=== PATIENT | female | born 1985 | race Caucasian/White ===

== ENCOUNTER → 2023-10-17 11:04 | Outpatient (REF) | payer OTHER, SELFPAY | LOC: PNTC 11:04 | PROVIDERS: ATTENDING PHYSICIAN Obstetrics & Gynecology | DX: O09.529 Supervision of elderly multigravida, unspecified trimester (principal); O99.210 Obesity complicating pregnancy, unspecified trimester; O34.219 Maternal care for unspecified type scar from previous cesarean delivery | CPT/HCPCS: 59025; 76801; 76813 ==

== ENCOUNTER → 2023-11-14 14:24 | Outpatient (REF) | payer OTHER, SELFPAY | LOC: PNTC 14:24 | PROVIDERS: ATTENDING PHYSICIAN Obstetrics & Gynecology | DX: O99.210 Obesity complicating pregnancy, unspecified trimester (principal); O09.529 Supervision of elderly multigravida, unspecified trimester; O43.219 Placenta accreta, unspecified trimester | CPT/HCPCS: 76805; 93976 ==

== ENCOUNTER → 2023-12-12 13:21 | Outpatient (REF) | payer OTHER, SELFPAY | LOC: PNTC 13:21 | PROVIDERS: ATTENDING PHYSICIAN Obstetrics & Gynecology | DX: O99.210 Obesity complicating pregnancy, unspecified trimester (principal); O09.519 Supervision of elderly primigravida, unspecified trimester; O43.219 Placenta accreta, unspecified trimester | CPT/HCPCS: 76811; 93976 ==

== ENCOUNTER → 2024-01-23 13:18 | Outpatient (REF) | payer OTHER, SELFPAY | LOC: PNTC 13:18 | PROVIDERS: ATTENDING PHYSICIAN Obstetrics & Gynecology | DX: O99.210 Obesity complicating pregnancy, unspecified trimester (principal); O09.519 Supervision of elderly primigravida, unspecified trimester; O34.219 Maternal care for unspecified type scar from previous cesarean delivery | CPT/HCPCS: 76816 ==

== ENCOUNTER → 2024-03-05 13:31 | Outpatient (REF) | payer OTHER, SELFPAY | LOC: PNTC 13:31 | PROVIDERS: ATTENDING PHYSICIAN Obstetrics & Gynecology | DX: O99.210 Obesity complicating pregnancy, unspecified trimester (principal); O09.529 Supervision of elderly multigravida, unspecified trimester; O34.219 Maternal care for unspecified type scar from previous cesarean delivery | CPT/HCPCS: 76816 ==

== ENCOUNTER → 2024-03-19 13:33 | Outpatient (REF) | payer OTHER, SELFPAY | LOC: PNTC 13:33 | PROVIDERS: ATTENDING PHYSICIAN Obstetrics & Gynecology | DX: O99.210 Obesity complicating pregnancy, unspecified trimester (principal); O09.529 Supervision of elderly multigravida, unspecified trimester | CPT/HCPCS: 59025; 76815 ==

== ENCOUNTER → 2024-03-26 13:31 | Outpatient (REF) | payer OTHER, SELFPAY | LOC: PNTC 13:31 | PROVIDERS: ATTENDING PHYSICIAN Obstetrics & Gynecology | DX: O09.529 Supervision of elderly multigravida, unspecified trimester (principal); O99.210 Obesity complicating pregnancy, unspecified trimester | CPT/HCPCS: 59025; 76818 ==

== ENCOUNTER → 2024-04-02 10:55 | Outpatient (REF) | payer OTHER, SELFPAY | LOC: PNTC 10:55 | PROVIDERS: ATTENDING PHYSICIAN Obstetrics & Gynecology | DX: O99.210 Obesity complicating pregnancy, unspecified trimester (principal); O09.519 Supervision of elderly primigravida, unspecified trimester | CPT/HCPCS: 59025; 76816 ==

== ENCOUNTER 2024-04-09 22:25 | Inpatient (IN) | payer OTHER, SELFPAY ==
[2024-04-09 22:54] LABS: % Basophils 0.3 % (0-2); % Eosinophils 1.7 % (0-6); % Immature Granulocytes 0.4 % (0-0.5); % Lymphocytes 19.9 % (20.5-51.1); % Monocytes 9.1 % (1.7-9.3); % Neutrophils 68.6 % (42.2-75.2); Absolute Eosinophils 0.2 10^3/uL (0-0.7); Absolute Lymphocytes 1.8 10^3/uL (1.2-3.4); Absolute Monocytes 0.8 10^3/uL (0.1-0.6); Absolute Neutrophils 6.3 10^3/uL (1.4-6.5); Hematocrit 32.5 % (37.0-47.0); Hemoglobin 11.3 g/dL (12.0-16.0); Mean Corp Hgb Conc. 34.8 g/dL (33.0-37.0); Mean Corpuscular Hgb 32.3 pg (27.0-31.0); Mean Corpuscular Volume 92.9 fL (81.0-99.0); Mean Platelet Volume 12.1 fL (7.4-10.4); Nucleated Red Blood Cells % 0 %; Platelet Count 216 10^3/uL (130-400); Red Cell Dist. Width 12.8 % (11.5-14.5); White Blood Cell Count 9.2 10^3/uL (4.8-10.8)
[2024-04-09 22:55] VITALS: BP 120/72; BMI 49.5
[2024-04-09 23:15] LABS: ALT (SGPT) 137 U/L (0-35); AST (SGOT) 75 U/L (14-36); Albumin 3.3 g/dl (3.5-5.0); Alkaline Phosphatase 167 U/L (38-126); Blood Urea Nitrogen 14 mg/dl (7-17); Calcium 8.9 mg/dl (8.4-10.2); Carbon Dioxide 20 mmol/L (22-30); Chloride 105 mmol/L (98-107); Estimated Creatinine Clearance > 125 ml/min; Glucose 100 mg/dl (70-99); Potassium 3.7 mmol/L (3.5-5.1); Sodium 135 mmol/L (135-145); Total Bilirubin 0.4 mg/dl (0.2-1.3); Total Protein 6.2 g/dl (6.3-8.2); eGFR > 60.00
[2024-04-10] MEDS: LR 1000 IV (01:34)
[2024-04-10] MEDS: CLEOCIN 50 IV (05:11)
[2024-04-10] MEDS: BICITRA 30 ML PO (05:23)
[2024-04-10] MEDS: TYLENOL 1000 MG PO (05:23)
[2024-04-10] MEDS: GENTAMICIN 60 MG IV (05:26)
[2024-04-10] MEDS: TORADOL 15 MG IV ×3 (08:39→21:19)
[2024-04-10] MEDS: PRENATAL PLUS PO (11:12)
[2024-04-10] MEDS: FLUSH (NSS) 3 FLUSH IV (21:20)
[2024-04-11] MEDS: TORADOL 15 MG IV (03:03)
[2024-04-11] MEDS: FLUSH (NSS) 3 FLUSH IV (03:04)
[2024-04-11 03:33] LABS: Hematocrit 27.4 % (37.0-47.0); Hemoglobin 9.4 g/dL (12.0-16.0); Mean Corp Hgb Conc. 34.3 g/dL (33.0-37.0); Mean Corpuscular Hgb 33.5 pg (27.0-31.0); Mean Corpuscular Volume 97.5 fL (81.0-99.0); Mean Platelet Volume 11.9 fL (7.4-10.4); Platelet Count 167 10^3/uL (130-400); Red Blood Cell Count 2.81 10^6/uL (4.20-5.40); Red Cell Dist. Width 12.8 % (11.5-14.5); White Blood Cell Count 9.5 10^3/uL (4.8-10.8)
[2024-04-11] MEDS: TYLENOL 650 MG PO ×2 (09:38→20:57)
[2024-04-11] MEDS: SENOKOT-S 1 TABLET PO (09:38)
[2024-04-11] MEDS: MOTRIN 600 MG PO ×3 (09:38→20:57)
[2024-04-11] MEDS: PRENATAL PLUS 1 TABLET PO (09:38)
[2024-04-12 00:31] LABS: Bile Acids (Cholylglycine) 22 umol/L (0-10)
[2024-04-12] MEDS: TYLENOL 650 MG PO ×4 (04:56→21:51)
[2024-04-12] MEDS: MOTRIN 600 MG PO ×3 (04:56→21:51)
[2024-04-12] MEDS: PRENATAL PLUS 1 TABLET PO (09:05)
[2024-04-12] MEDS: FEOSOL 325 MG PO (09:05)
[2024-04-12] MEDS: SENOKOT-S 1 TABLET PO (09:11)
--- NOTE | 2024-04-12 09:47 | W.PN.ANS.POP ---
Anesthesia Post Operative
- Anesthesia Post Op Note
Vital Signs Stable-See Nursing Note: Yes
Airway Patent: Yes
Adequate Pain Control: Yes
Change in Mental Status: No
Current Postoperative Nausea & Vomiting: No
Anesthesia Complications: No
General Anesthetic Recall: No
Unplanned Admission: No
Post Op Hydration Adequate: Yes
[2024-04-13] MEDS: PRENATAL PLUS 1 TABLET PO (08:17)
[2024-04-13] MEDS: FEOSOL 325 MG PO (08:17)
[2024-04-13] MEDS: TYLENOL 650 MG PO (08:26)
[2024-04-13] MEDS: MOTRIN 600 MG PO (08:27)
[2024-04-13 10:37] LABS: Syphilis/T. pallidum Ab Reflex Negative (Negative)
== END 2024-04-13 12:21 | disposition home or self-care (01) | DRG 788 ==
LOC: LDRP 22:25
PROVIDERS: ADMITTING PHYSICIAN Obstetrics & Gynecology; ATTENDING PHYSICIAN Obstetrics & Gynecology
PROC: 10D00Z1 Extraction of Products of Conception, Low, Open Approach (ICD-10-PCS; 2024-04-10)
PROC: 10907ZC Drainage of Amniotic Fluid, Therapeutic from Products of Conception, Via Natural or Artificial Opening (ICD-10-PCS; 2024-04-10)
DX: O26.643 Intrahepatic cholestasis of pregnancy, third trimester (principal); O34.211 Maternal care for low transverse scar from previous cesarean delivery; O99.214 Obesity complicating childbirth; E66.01 Morbid (severe) obesity due to excess calories; Z3A.37 37 weeks gestation of pregnancy; Z37.0 Single live birth; Z98.84 Bariatric surgery status; Z90.49 Acquired absence of other specified parts of digestive tract
CPT/HCPCS: 88307; 59025; 76815; 80053; 82239; 85025; 85027; 86780; 86850; 86900; 86901

== ENCOUNTER 2024-10-12 13:15 | Emergency (ER) | payer SELFPAY ==
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
== END 2024-10-12 14:39 | disposition home or self-care (01) ==
LOC: EMR 13:15
PROVIDERS: EMERGENCY PHYSICIAN Emergency Medicine
DX: M54.9 Dorsalgia, unspecified (principal); V89.0XXA Person injured in unspecified motor-vehicle accident, nontraffic, initial encounter
CPT/HCPCS: 99282